=== PATIENT | male | born 1950 | race Caucasian/White ===

== ENCOUNTER 2024-07-15 20:06 | Emergency (ER) | payer OTHER ==
[2024-07-15 20:15] VITALS: BP 143/81; PULSE 69; RESP 18; TEMP 97.9; BMI 37.0
[2024-07-15] MEDS ORDERED: diphenhydrAMINE HCL 25 MG CAPSULE (FP) PO ONE (20:22)
[2024-07-15] MEDS: diphenhydrAMINE HCL 50 MG CAPSULE PO ONE (20:23)
== END 2024-07-15 20:30 | disposition home or self-care (01) ==
LOC: FER 20:06
DX: M26.69 Other specified disorders of temporomandibular joint (principal)
CPT/HCPCS: 99283-25